=== PATIENT | male | born 1970 | race Caucasian/White ===

== ENCOUNTER 2019-04-17 21:36 | Emergency (ER) | payer OTHER ==
[2019-04-17] MEDS ORDERED: MORPHINE SULFATE 10 MG/ML INJ IV ONE (22:08)
[2019-04-17] MEDS ORDERED: ONDANSETRON HCL INJ/PF 4 MG/2 ML SDV IV ONE (22:08)
[2019-04-17] MEDS ORDERED: KETOROLAC TROMETHAMINE INJ/PF 30 MG/1 ML SDV IV ONE (22:08)
--- NOTE | 2019-04-17 22:10 | ER Document Report ---
ED General - General Chief Complaint: Abdominal Pain Stated Complaint: ABDOMINAL PAIN Time Seen by Provider: 04/17/19 22:08 Primary Care Provider: MARCIN MONSALVE [NO LOCAL MD] - Follow up as needed TRAVEL OUTSIDE OF THE [place] IN LAST 30 DAYS: No - HPI Notes: Patient presents with several hours of sudden onset right flank pain. It radiates into his testicle. Is severe. It is sharp. Nothing makes it better or worse. Says it feels similar to previous kidney stone that he has had. He had no dysuria or painful urination. No problems with bowel movements. No fevers. - Related Data Allergies/Adverse Reactions: No Known Allergies Allergy (Unverified 07/20/13 08:27) Past Medical History - General Information source: Patient - Social History Smoking Status: Never Smoker Frequency of alcohol use: None Drug Abuse: None Family History: Reviewed & Not Pertinent - Immunizations Hx Diphtheria, Pertussis, Tetanus Vaccination: Yes Review of Systems - Review of Systems Constitutional: denies: Chills, Fever Cardiovascular: denies: Chest pain, Dyspnea Respiratory: denies: Cough, Short of breath Gastrointestinal: Abdominal pain. denies: Diarrhea, Vomiting -: Yes All other systems reviewed and negative Physical Exam - Vital signs Vitals: Temp Pulse Resp Pulse Ox 97.7 F 57 L 18 99 04/17/19 21:54 04/17/19 21:54 04/17/19 21:54 04/17/19 21:54 Interpretation: Normal - General General appearance: Appears well, Alert - HEENT Head: Normocephalic, Atraumatic Eyes: Normal Pupils: PERRL - Respiratory Respiratory status: No respiratory distress Chest status: Nontender Breath sounds: Normal Chest palpation: Normal - Cardiovascular Rhythm: Regular Heart sounds: Normal auscultation Murmur: No - Abdominal Inspection: Normal Distension: No distension Bowel sounds: Normal Tenderness: Nontender Organomegaly: No organomegaly - Genitourinary Inspection: Normal Tenderness: Nontender Scrotum: Normal - Back Back: Normal, Nontender - Extremities General upper extremity: Normal inspection, Nontender, Normal color, Normal ROM, Normal temperature General lower extremity: Normal inspection, Nontender, Normal color, Normal ROM, Normal temperature, Normal weight bearing. No: Gisselle's sign - Neurological Neuro grossly intact: Yes Cognition: Normal Orientation: AAOx4 Brit Coma Scale Eye Opening: Spontaneous [place] Coma Scale Verbal: Oriented Brit Coma Scale Motor: Obeys Commands Brit Coma Scale Total: 15 Speech: Normal Motor strength normal: LUE, RUE, LLE, RLE Sensory: Normal - Psychological Associated symptoms: Normal affect, Normal mood - Skin Skin Temperature: Warm Skin Moisture: Dry Skin Color: Normal Course - Re-evaluation Re-evalutation: 04/17/19 23:19 Patient reevaluated and he feels better. He does have a 2 mm kidney stone on the right that would explain the patient's presentation. - Vital Signs Vital signs: Temp Pulse Resp BP Pulse Ox 97.7 F 57 L 18 99 04/17/19 21:54 04/17/19 21:54 04/17/19 21:54 04/17/19 21:54 - Laboratory Laboratory results interpreted by me: 04/17/19 22:10 Urine Blood SMALL H Laboratory 04/17/19 22:10 Urine Color STRAW Urine Appearance CLEAR Urine pH 6.0 Ur Specific Story 1.006 Urine Protein NEGATIVE Urine Glucose (UA) NEGATIVE Urine Ketones NEGATIVE Urine Blood SMALL H Urine Nitrite NEGATIVE Urine Bilirubin NEGATIVE Urine Urobilinogen NEGATIVE Ur Leukocyte Esterase NEGATIVE Urine RBC (Auto) 1 Urine Mucus (Auto) RARE Urine Ascorbic Acid NEGATIVE - Diagnostic Test Radiology reviewed: Image reviewed, Reports reviewed Radiology results interpreted by me: 04/17/19 23:20 Abdomen/Pelvis CT 04/17/19 22:08 IMPRESSION: 1. Mild right hydronephrosis and hydroureter to the level of a 2 mm right UVJ stone. 2. Mild diverticulosis. Discharge - Discharge Clinical Impression: Ureteral stone Condition: Stable Disposition: HOME, SELF-CARE Instructions: Kidney Stone ([facility]) Prescriptions: Tramadol HCl [Ultram 50 mg Tablet] 50 mg PO Q4HP PRN #60 tab PRN Reason: Forms: Return to Work Referrals: LAMBERT YATES MD [NO LOCAL MD] - Follow up as needed
[2019-04-17 22:28] LABS: APPEARANCE,URINE CLEAR; BILIRUBIN,URINE NEGATIVE (NEGATIVE); COLOR,URINE STRAW; GLUCOSE, URINE NEGATIVE (NEGATIVE); KETONES,URINE NEGATIVE (NEGATIVE); LEUKOCYTE ESTERASE,URINE NEGATIVE (NEGATIVE); NITRITE,URINE NEGATIVE (NEGATIVE); PROTEIN,URINE NEGATIVE (NEGATIVE); URINE SPECIFIC GRAVITY 1.006; UROBILINOGEN,URINE NEGATIVE mg/dL (<2.0)
--- NOTE | 2019-04-17 23:11 | RADIOLOGY REPORT (SQ) ---
CT abdomen and pelvis without contrast on 04/17/2019 at 10:35 PM CLINICAL INDICATION: Right-sided back pain TECHNIQUE: Multiple axial images are obtained throughout the abdomen and pelvis without the administration of contrast. This exam was performed according to our departmental dose-optimization program, which includes automated exposure control, adjustment of the mA and/or kV according to patient size and/or use of iterative reconstruction technique. Total DLP is 844.62 mGy*cm. COMPARISON: None FINDINGS: Abdomen: The lung bases are clear. There is mild right hydronephrosis and hydroureter to the level of a 2 mm right UVJ stone. There is right perinephric stranding related to the obstruction. There are no other renal or ureteral stones. The unenhanced solid abdominal organs are otherwise unremarkable. There is no abdominal adenopathy. There is no free fluid or free air within the abdomen. There is diverticulosis. The abdominal portion of the GI tract is otherwise unremarkable. Pelvis: There is no free fluid in the pelvis. There is a small left inguinal hernia containing only fat. There is no pelvic adenopathy. Pelvic portion of the GI tract including the appendix is unremarkable. No acute bony abnormality is noted. IMPRESSION: 1. Mild right hydronephrosis and hydroureter to the level of a 2 mm right UVJ stone. 2. Mild diverticulosis.
== END 2019-04-17 23:35 | disposition home or self-care (01) ==
LOC: ER 21:36
DX: N20.1 Calculus of ureter (principal); R10.9 Unspecified abdominal pain
CPT/HCPCS: 99284; 96374; 96375; 81001; 74176; J1885; J2270; J2405

== ENCOUNTER 2019-10-07 22:54 | Emergency (ER) | payer OTHER ==
[2019-10-08 04:03] VITALS: BP 131/78
[2019-10-08] MEDS ORDERED: CLINDAMYCIN HCL 150 MG CAPSULE PO ONE (04:44)
[2019-10-08] MEDS ORDERED: OXYCODONE-ACETAMINOPHEN 5-325 MG TABLET PO ONE (04:44)
[2019-10-08] MEDS ORDERED: PROMETHAZINE HCL 25 MG TABLET PO ONE (04:44)
--- NOTE | 2019-10-08 04:48 | ER Document Report ---
HPI - HPI Time Seen by Provider: 10/08/19 04:24 Pain Level: 5 Context: Patient is a 49-year-old male that comes emergency department for chief complaint of dental pain on the right lower side. He states this started hurting several days ago, this is worsened over the past 3 days and he has started to have some swelling of the right side of his face. He has no diffic ulty opening his mouth. He states he cannot sleep because of the pain. He states he has a known dental fracture and he has seen a dentist for this but they have not scheduled an extraction yet. He denies neck pain, fever, difficulty swallowing or breathing, sore throat. He was unable to contact them because of inclement weather for follow-up. Past medical history of arthritis, anxiety/depression. No other Medical history reported. at bedside. - CONSTITUTIONAL Constitutional: REPORTS: Chills. DENIES: Fever - EENT EENT: DENIES: Sore Throat, Ear Pain, Eye problems - NEURO Neurology: DENIES: Headache, Weakness, Vision blurred, Dizzinesss / Vertigo - CARDIOVASCULAR Cardiovascular: DENIES: Chest pain - RESPIRATORY Respiratory: DENIES: Trouble Breathing, Coughing - GASTROINTESTINAL Gastrointestinal: DENIES: Abdominal Pain, Black / Bloody Stools - URINARY Urinary: DENIES: Dysuria, Urgency, Frequency - REPRODUCTIVE Reproductive: DENIES: : - MUSCULOSKELETAL Musculoskeletal: DENIES: Extremity pain Past Medical History - General Information source: Patient - Social History Smoking Status: Never Smoker Chew tobacco use (# tins/day): No Frequency of alcohol use: None Drug Abuse: None Lives with: Family Family History: Reviewed & Not Pertinent Patient has suicidal ideation: No Patient has homicidal ideation: No Surgical Hx: Negative - Immunizations Hx Diphtheria, Pertussis, Tetanus Vaccination: Yes Vertical Provider Document - CONSTITUTIONAL General Appearance: WD/WN. negative: No Apparent Distress - Patient appears mildly uncomfortable but is not in severe distress - INFECTION CONTROL TRAVEL OUTSIDE OF THE [place] IN LAST 30 DAYS: No - HEENT HEENT: Atraumatic, Normocephalic. negative: Normal ENT Exam - See mouth diagram, pharyngeal exam unremarkable, ears, sinuses, eyes unremarkable. Patient has subtle swelling of the right side of the face but no evidence of Richard's angina. Patient has no trismus. Mouth Diagram: 1 - Dental caries, there is swelling of the gingiva with erythema and tenderness but no noted induration or fluctuance. Unremarkable oropharyngeal exam otherwise - NECK Neck: Normal Inspection. negative: Lymphadenopathy-Left, Lymphadenopathy-Right - RESPIRATORY Respiratory: Breath Sounds Normal, No Respiratory Distress - CARDIOVASCULAR Cardiovascular: Regular Rate, Regular Rhythm - GI/ABDOMEN Gastrointestinal: Abdomen Soft, Abdomen Non-Tender - BACK Back: Normal Inspection - MUSCULOSKELETAL/EXTREMETIES Musculoskeletal/Extremeties: MAEW, FROM, Non-Tender - NEURO Level of Consciousness: Awake, Alert, Appropriate Motor/Sensory: No Motor Deficit, No Sensory Deficit - DERM Integumentary: Warm, Dry, No Rash Course - Re-evaluation Re-evalutation: Patient does have some mild soft tissue swelling of the face but no notable abscess. Swelling is not severe, area is not indurated or fluctuant, he has no evidence of Richard's angina, appears to be developing infection but I do not suspect an abscess at this time. Patient has no trismus. Patient started on antibiotics, he already has dental follow-up, discussed expectations and return precautions. Patient and significant other state understanding and agreement. Stable at time of discharge. - Vital Signs Vital signs: Temp Pulse Resp BP Pulse Ox 100.2 F 105 H 20 131/78 H 99 10/08/19 04:02 10/08/19 04:02 10/08/19 04:02 10/08/19 04:02 10/08/19 04:02 Discharge - Discharge Clinical Impression: Pain, dental, Dental infection Condition: Stable Disposition: HOME, SELF-CARE Additional Instructions: There is no noted abscess at this time. Take the antibiotics as prescribed for the dental infection, follow-up closely with your dental clinic for additional treatment over this will continue to happen. Return if you worsen including severe worsening pain, worsening swelling, fever, or any other concerning symptoms. Prescriptions: Clindamycin HCl [Cleocin 150 mg Capsule] 150 mg PO Q6 #56 capsule Forms: Return to Work
[2019-10-08] MEDS ORDERED: HYDROCODONE/ACETAMINOPHEN 5-325 MG (6 TAB/ER DISP) PO PRN (04:49)
== END 2019-10-08 05:00 | disposition home or self-care (01) ==
LOC: ER 22:54
DX: K04.7 Periapical abscess without sinus (principal); K08.89 Other specified disorders of teeth and supporting structures; R22.0 Localized swelling, mass and lump, head
CPT/HCPCS: 99282

== ENCOUNTER 2020-08-13 09:06 | Day surgery (SDC) | payer OTHER ==
[~2020-08-13 09:06] MED LIST: CEFAZOLIN 2 GM/D5W RTU 2 GM/50 ML RTUPB IV ONE; CEFAZOLIN 2 GM/D5W RTU 2 GM/50 ML RTUPB IV PRN; DEXAMETHASONE SOD PHOSPHATE INJ 4 MG/1 ML VIAL ONE; FENTANYL CITRATE INJ/PF 100 MCG/2 ML AMPUL ONE; LACTATED RINGERS 1000 ML IV PRN; LIDOCAINE 0.5% INJ-PF (5 MG/ML) 50 ML SDV SUBCUT PRN; MIDAZOLAM 2 MG/2 ML INJ ONE; ONDANSETRON HCL INJ/PF 4 MG/2 ML SDV ONE; PROPOFOL INJ 200 MG/20 ML VIAL IV ONE
[2020-08-13] MEDS ORDERED: LIDOCAINE 2%/EPINEPHRINE INJ 20 ML VIAL ONE (10:25)
[2020-08-13] MEDS ORDERED: ROPIVACAINE HCL 0.5% INJ/PF (5 MG/1 ML) 30 ML SDV ONE (10:25)
[2020-08-13] MEDS ORDERED: EPINEPHRINE INJ/PF 1 MG/1 ML AMPULE ONE (11:41)
[2020-08-13] MEDS ORDERED: PROMETHAZINE HCL INJ 25 MG/1 ML VIAL IV PRN (12:41)
[2020-08-13] MEDS ORDERED: MEPERIDINE HCL/PF INJ 25 MG/1 ML DISP.SYRIN IV PRN (12:41)
[2020-08-13] MEDS ORDERED: MORPHINE SULFATE 10 MG/ML INJ IV PRN (12:41)
[2020-08-13] MEDS ORDERED: DIPHENHYDRAMINE HCL 50 MG/ML VIAL IV PRN (12:41)
[2020-08-13] MEDS ORDERED: FENTANYL CITRATE INJ/PF 100 MCG/2 ML AMPUL IV PRN ×3 (12:41)
[2020-08-13] MEDS ORDERED: ONDANSETRON HCL INJ/PF 4 MG/2 ML SDV IV PRN (14:12)
[2020-08-13] MEDS ORDERED: OXYCODONE-ACETAMINOPHEN 5-325 MG TABLET PO PRN (14:12)
--- NOTE | 2020-08-13 14:12 | Discharge Summary ---
Discharge Summary (SDC) - Discharge Final Diagnosis: Right shoulder rotator cuff tear Date of Surgery: 08/13/20 Discharge Date: 08/13/20 Condition: Good Treatment or Instructions: Schedule Follow Up w/ Dr. Real Pérez @ [facility] for Surgery to be seen in 10-14 days or as scheduled [place]: [place]: [place]: May remove dressing on postop day #3, keep incision covered and dry. Cryocuff to shoulder May begin pendulum exercises along w/ hand, wrist and elbow range of motion 4x per day or as tolerated. May remove sling for hygiene purposes otherwise continue it at all times. Stool softener of choice when on pain medication. USE OF [id number] IBUPROFEN: Ibuprofen (Advil, Nuprin, Medipren, Motrin IB) is a medication for fever and pain control. In addition, it has anti- inflammatory effects which may be beneficial, especially in the treatment of injuries. It's best to take ibuprofen with food. Persons with ulcer disease or allergy to aspirin should notify their physician of this before taking ibuprofen. Ibuprofen can be given every four to six hours, for a total of four doses daily. Age Pain or fever dose Antiinflammatory dose 6-8 yr 200 mg (1 tab) 200 mg (1 tab) 9-11 yr 200 mg (1 tab) 200-400 mg (1-2 tab) 11-14 yr 200-400 mg (1-2 tab) 400 mg (2 tab) 15-adult 400 mg (2 tab) 600 mg (3 tab) ORAL NARCOTIC MEDICATION: You have been given a prescription for pain control. This medication is a narcotic. It's best taken with food, as nausea can result if taken on an empty stomach. Don't operate machinery or drive within six hours of taking this medic ation. Do not combine this medicine with alcohol, or with any medication which can cause sedation (such as cold tablets or sleeping pills) unless you get permission from the physician. Narcotics tend to cause constipation. If possible, drink plenty of fluids and eat a diet high in fiber and fruits. Please be aware that prescription narcotics also have the potential for abuse. People become addicted to these medications because of the general sense of wellbeing that they induce. This feeling along with a significant reduction in tension, anxiety, and aggression provides a stimulating seductive quality to these drugs. Once your pain is under control, we encourage you to discard your unused narcotics. Prescriptions: Ketorolac Tromethamine [Toradol 10 mg Tablet] 10 mg PO Q8HP PRN #12 tablet PRN Reason: Oxycodone HCl/Acetaminophen [Percocet 5-325 mg Tablet] 1 tab PO Q6 PRN #25 tab PRN Reason: [facility]errals[facility] - Discharge Diet: As Tolerated Respiratory Treatments at Home: Deep Breathing/Coughing, Incentive Spirometer Discharge Activity: No Lifting Over 10 Pounds, No Lifting/Push/Pulling Report the Following to Your Physician Immediately: Fever over 101 Degrees, Unusual Bleeding, Redness, Swelling, Warmth, Increased Soreness
--- NOTE | 2020-08-13 14:20 | Operative Report ---
Operative Report DATE OF SURGERY: 08/13/20 PREOPERATIVE DIAGNOSIS: Right shoulder rotator cuff tear, impingement syndrome, degenerative SLAP tear with intra-articular biceps tendon tear POSTOPERATIVE DIAGNOSIS: Same OPERATION: Right shoulder arthroscopy with rotator cuff repair, subacromial decompression/acromioplasty, open subpectoralis biceps tenodesis SURGEON: AMBERLY BERRY 1ST OPTICAL EFFECTS LINE UP PERSON: FARRAH ZAVALA ANESTHESIA: GA COMPLICATIONS: None ESTIMATED BLOOD LOSS: Minimal PROCEDURE: Indication for above procedure: 50-year-old male with right shoulder discomfort. Patient attempted conservative measures including anti-inflammatories and subacromial injection without resolution of his symptoms. Patient had an MRI confirming full-thickness rotator cuff tear. We discussed treatment options including operative versus nonoperative intervention after discussing risk and benefits of both decision was made to proceed with operative treatment. Procedure In Detail: Patient was seen and evaluated in the preoperative holding area. The Right upper extremity was initialized and marked. Patient received 2g of Ancef IV for bacterial prophylaxis. Patient was taken back to the operative room where transferred to the operative table and placed under general anesthesia. Once they were adequately anesthetized patient placed in the beachchair position. Cervical spine was placed in neutral position all bony prominences were padded including nonoperative upper extremity and bilateral lower extremity. A surgic al team debriefing was performed ensuring all instrumentation was available, the surgical procedure was discussed with possible concerns reviewed. The upper extremity was prepped with ChloraPrep draped in a sterile fashion. A timeout was done identifying correct patient, procedure and extremity everyone in attendance agree with this and verbalized no concerns. Posterior portal was established arthroscope introduced into the glenohumeral joint. Via triangulation anterior portal was established. There was evidence of degenerative SLAP tear with extension into the biceps tendon. No evidence of glenohumeral degenerative changes. Inspection of the rotator cuff demonstrated high-grade partial-thickness tear along the anterior supraspinatus no involvement of the posterior portion of supraspinatus or infraspinatus. Via triangulation a 18-gauge of was inserted and a Prolene suture placed around the questionable area of the tear. These undersurface of the rotator cuff was debrided. Biceps tenotomy was performed to allow for later tenodesis. The degenerative SLAP tear was debrided. Attention then turned to the subacromial space. Arthroscope was introduced into the subacromial space lateral portal was established. Passport cannula was inserted. There was a full-thickness rotator cuff tear along the anterior supraspinatus just posterior to the rotator interval. Coracoacromial ligament was released but not excised. Anterior acromial spur was debrided with the arthroscopic bur. The greater tuberosity was then debrided down to the cancellous bone. A additional anterolateral portal was established and 3.75 swivel lock anchor was placed in the greater tuberosity and a fiber tape suture was then placed through the rotator cuff with a horizontal mattress stitch. This was then loaded onto an additional 3.75 swivel lock anchor which was then implanted along the lateral tuberosity which brought the rotator cuff firmly down to the greater tuberosity. Shoulder was placed through range of motion and the rotator cuff mobilized as a unit. There was remaining defect anteriorly consistent with the rotator interval. Attention then turned to biceps tenodesis. Longitudinal skin incision was made along the inferior third of the pectoralis major. Blunt dissection was performed identifying the inferior border of the pectoralis major. Any peripheral vasculature was carefully coagulated. I then identified the tenotomized long head of the biceps which was retrieved and brought out the wound. The tendon was then secured 2 centimeters distal to the musculotendinous junction with a #2 fiber loop and the remaining diseased portion of the biceps was excised. The Arthrex biceps tenodesis button was then secured to my biceps tendon. Under direct visualization I then cleared an area along the anterior aspect of the humerus and drilled unicortically. The button was then placed into the unicortical hole and the biceps tendon was shuttled to the anterior cortex of the humerus. I then checked stability of the button confirming maximal fixation. Utilizing the free needle one limb of the remaining FiberWire was secured to the biceps providing further fixation. The elbow was then placed through range of motion to ensure appropriate tension of the biceps with flexion and extension. The wound was then copiously irrigated with normal saline. Any peripheral vasculature was carefully coagulated with Bovie cautery. Skin was closed a running subcuticular 3-0 Monocryl suture reinforced with Dermabond and Steri-Strips, Portal incisions were closed with interrupted 3-0 nylon suture. Sponge counts, instrument counts, needle counts were correct. Patient was then awoken from anesthesia. Transferred from the operating room table to the operating room stretcher. There was no intraoperative complications patient tolerated procedure well stable to PACU. Postop plan: Patient will follow in the office in 2 weeks for wound check. Will begin physical therapy 5-6 weeks postop as per rotator cuff repair protocol.
[2020-08-13 16:50] VITALS: BP 130/70
== END 2020-08-13 16:45 | disposition home or self-care (01) ==
LOC: OROUT 09:06
PROVIDERS: ATTEND Orthopaedic Surgery
DX: M75.121 Complete rotator cuff tear or rupture of right shoulder, not specified as traumatic (principal); M75.41 Impingement syndrome of right shoulder; S43.431A Superior glenoid labrum lesion of right shoulder, initial encounter; X58.XXXA Exposure to other specified factors, initial encounter; Z01.812 Encounter for preprocedural laboratory examination; Z20.828 Contact with and (suspected) exposure to other viral communicable diseases; E66.9 Obesity, unspecified; M19.90 Unspecified osteoarthritis, unspecified site; F43.10 Post-traumatic stress disorder, unspecified; F41.9 Anxiety disorder, unspecified; Z79.899 Other long term (current) drug therapy; Z79.1 Long term (current) use of non-steroidal anti-inflammatories (NSAID); Z87.891 Personal history of nicotine dependence
CPT/HCPCS: 87635; 29827; 29826; 23430; L3650; C1713 ×4; J2795; J2250; J1100; J0171; J3010; J3490; J2405; J2704; J0690; C9803